=== PATIENT | male | born 1980 | race Caucasian/White ===

== ENCOUNTER 2020-06-09 19:39 | Emergency (ER) | payer OTHER ==
[~2020-06-09] VITALS: Ht 188 cm; Wt 99.8 kg
[2020-06-09 19:42] VITALS: BP_SYST 135
[2020-06-09] MEDS ORDERED: KETOROLAC TROMETHAMINE 30 MG VIAL IM ONE (20:00)
[2020-06-09] MEDS ORDERED: MORPHINE 2 MG/ML INJ. SYRINGE IVP ONE (21:15)
[2020-06-09 22:07] VITALS: BP_SYST 126
== END 2020-06-09 22:07 | disposition home or self-care (01) ==
LOC: SED 19:39
DX: S30.0XXA Contusion of lower back and pelvis, initial encounter (principal); M62.838 Other muscle spasm; W18.39XA Other fall on same level, initial encounter; Y93.01 Activity, walking, marching and hiking; Y92.89 Other specified places as the place of occurrence of the external cause; Y99.8 Other external cause status
CPT/HCPCS: 70450; 72125; 72128; 96372; 99285; J1885